=== PATIENT | male | born 1980 ===

== ENCOUNTER 2016-09-12 17:24 | Emergency (ER) | payer OTHER ==
[2016-09-12 17:31] VITALS: BP 150/82; PULSE 82; RESP 18; TEMP 98.7; O2SAT 98
--- NOTE | 2016-09-12 17:46 | ED PDOC ---
HPI: CCC, URI, Sore Throat Time Seen by Provider: 09/12/16 17:40 Chief Complaint (Nursing): ENT Problem Chief Complaint (Provider): Cough History Per: Patient History/Exam Limitations: no limitations Onset/Duration Of Symptoms: Days (4) Current Symptoms Are (Timing): Still Present Associated Symptoms: Fever (subjective), Chills, Sore Throat, Cough, Sputum, Myalgias Additional Complaint(s): Thai De La Rosa is a 36 y/o male presenting to the ER on 09/12/2016 with complaints of a productive cough associated with green sputum for four days. Patient reports cough is associated with myalgias, chills, throat pain and a subjective fever. Patient states he has not recently traveled outside the country. Past Medical History Reviewed: Historical Data, Nursing Documentation, Vital Signs Vital Signs: Last Vital Signs Temp 98.7 F 09/12/16 17:29 Pulse 82 09/12/16 17:29 Resp 18 09/12/16 17:29 BP 150/82 09/12/16 17:29 Pulse Ox 98 09/12/16 17:50 - Medical History PMH: Kidney Stones Denies: HIV, Chronic Kidney Disease - Surgical History Other surgeries: urinary stent - Family History Family History: States: Unknown Family Hx - Social History Current smoker - smoking cessation education provided: No Alcohol: None Drugs: Denies - Home Medications Home Medications: Ambulatory Orders Medication Instructions Recorded Ciprofloxacin HCl [Cipro] 500 mg PO Q12 #20 tablet 08/29/15 Tamsulosin [Flomax] 0.4 mg PO DAILY #30 cap 08/29/15 Naproxen [Naprosyn] 1 tab PO BID PRN #60 tab 09/04/15 oxyCODONE/Acetaminophen [Percocet 1 tab PO QID PRN #15 tab 09/04/15 5/325 mg Tab] Azithromycin [Zithromax] 250 mg PO DAILY #6 tab 09/12/16 Guaifenesin [Mucinex] 600 mg PO BID #14 tab.er.12h 09/12/16 - Allergies Allergies/Adverse Reactions: Allergies Allergy/AdvReac Type Severity Reaction Status Date / Time No Known Allergies Allergy Verified 03/10/14 01:03 Review of Systems ROS Statement: Except As Marked, All Systems Reviewed And Found Negative Constitutional: Positive for: Fever (subjective ), Chills, Other ((+) myalgia ) ENT: Positive for: Throat Pain Respiratory: Positive for: Cough, Sputum (green) Physical Exam - Reviewed Nursing Documentation Reviewed: Yes Vital Signs Reviewed: Yes - Physical Exam Appears: Positive for: Non-toxic, No Acute Distress Head Exam: Positive for: ATRAUMATIC, NORMOCEPHALIC Skin: Positive for: Normal Color. Negative for: Rash Eye Exam: Positive for: Normal appearance, EOMI, PERRL ENT: Positive for: Normal ENT Inspection, Pharynx Is (clear), TM Is/Are (normal ). Negative for: Sinus Pain/Drainage ((-) sinus tenderness ), Pharyngeal Erythema, Tonsillar Swelling Neck: Positive for: Normal, Painless ROM, Supple Cardiovascular/Chest: Positive for: Regular Rate, Rhythm. Negative for: Murmur Respiratory: Positive for: Normal Breath Sounds. Negative for: Wheezing, Respiratory Distress Lymphatic: Positive for: Normal Exam ((+) swelling ) Neurologic/Psych: Positive for: Alert, Oriented. Negative for: Motor/Sensory Deficits - ECG O2 Sat by Pulse Oximetry: 98 - Radiology X-Ray: Interpreted by Me X-Ray Interpretation: Other (? hypodensities noted. advised to have outpt CT scna of chest. no acute diease process noted. ) Medical Decision Making Medical Decision Makin:40 Initial Impression- 36 y/o male with productive cough; r/o PNA (due to green sputum) Initial Plan- * CXR-negative for active diease * will be d/c with zpack/mucinex f/u with pmd. Documented by Miguel Lujan, acting as a scribe for Melia Arias PA-C All medical record entries made by the Scribe were at my direction and personally dictated by me. I have reviewed the chart and agree that the record accurately reflects my personal performance of the history, physical exam, medical decision making, and the department course for this patient. I have also personally directed, reviewed, and agree with the discharge instructions and disposition. Disposition - Clinical Impression Clinical Impression: Upper respiratory infection - Patient ED Disposition Is Patient to be Admitted: No Counseled Patient/Family Regarding: Studies Performed, Diagnosis, Need For Followup, Rx Given - Disposition Referrals: [facility] [Outside] Disposition: Routine/Home Disposition Time: 18:34 Condition: STABLE Prescriptions: Azithromycin [Zithromax] 250 mg PO DAILY #6 tab Guaifenesin [Mucinex] 600 mg PO BID #14 tab.er.12h Instructions: Upper Respiratory Infection (ED)
--- NOTE | 2016-09-13 12:31 | RAD ---
HISTORY: Cough. COMPARISON: No prior. TECHNIQUE: Chest PA and lateral FINDINGS: LUNGS: No active pulmonary disease. PLEURA: No significant pleural effusion identified. No pneumothorax apparent. CARDIOVASCULAR: No radiographic findings to suggest acute or significant cardiovascular disease. OSSEOUS STRUCTURES: No significant abnormalities. VISUALIZED UPPER ABDOMEN: Normal. OTHER FINDINGS: None. IMPRESSION: No active disease.
== END 2016-09-12 18:25 | disposition home or self-care (01) ==
LOC: H.ER 17:24
DX: R50.9 Fever, unspecified (principal); J06.9 Acute upper respiratory infection, unspecified; Z87.442 Personal history of urinary calculi

== ENCOUNTER 2016-12-08 13:39 | Emergency (ER) | payer MEDICAID, OTHER ==
[2016-12-08 13:48] VITALS: BP 124/91; PULSE 85; TEMP 97.8; O2SAT 99
--- NOTE | 2016-12-08 15:01 | CT ---
PROCEDURE: CT HEAD WITHOUT CONTRAST. HISTORY: headache, vomiting COMPARISON: None available. TECHNIQUE: Axial computed tomography images were obtained through the head/brain without intravenous contrast. Radiation dose: Total exam DLP = 886.27 mGy-cm. This CT exam was performed using one or more of the following dose reduction techniques: Automated exposure control, adjustment of the mA and/or kV according to patient size, and/or use of iterative reconstruction technique. FINDINGS: HEMORRHAGE: No intracranial hemorrhage. BRAIN: No mass effect or edema. There is a small lucency at the inferior left basal ganglia which is a typical site for a dilated perivascular space which is favored over chronic lacune or infarct. Density of the ibrahim and white matter structures above below the tentorium is otherwise unremarkable including throughout the brainstem. Midline brain anatomy is unremarkable. VENTRICLES: Unremarkable. No hydrocephalus. CALVARIUM: Unremarkable. PARANASAL SINUSES: Unremarkable as visualized. No significant inflammatory changes. MASTOID AIR CELLS: Unremarkable as visualized. No inflammatory changes. OTHER FINDINGS: None. IMPRESSION: No acute intracranial findings are appreciated this time. A dilated perivascular space is favored over chronic lacune at the inferior left basal ganglia as discussed above. Follow-up CT or MRI are available should symptoms worsen or persist.
--- NOTE | 2016-12-08 16:06 | ED PDOC ---
HPI: Headache Time Seen by Provider: 12/08/16 13:54 Chief Complaint (Nursing): Headache Chief Complaint (Provider): Headache, back of head intermittent x2 weeks History Per: Patient History/Exam Limitations: no limitations Onset/Duration Of Symptoms: Days Current Symptoms Are (Timing): Still Present Severity: Moderate Pain Scale Rating Of: 5 Additional Complaint(s): Pt has not taken any medications for pain. Pt states he was worried about DM. Past Medical History Reviewed: Historical Data, Nursing Documentation, Vital Signs Vital Signs: Last Vital Signs Temp 97.8 F 12/08/16 13:45 Pulse 85 12/08/16 13:45 Resp 18 12/08/16 13:45 BP 124/91 H 12/08/16 13:45 Pulse Ox 99 12/08/16 13:45 - Medical History PMH: Kidney Stones Denies: HIV, Chronic Kidney Disease - Surgical History Surgical History: No Surg Hx - Family History Family History: States: Unknown Family Hx - Living Arrangements Living Arrangements: With Family - Social History Current smoker - smoking cessation education provided: No - Home Medications Home Medications: Ambulatory Orders Medication Instructions Recorded Ciprofloxacin HCl [Cipro] 500 mg PO Q12 #20 tablet 08/29/15 Tamsulosin [Flomax] 0.4 mg PO DAILY #30 cap 08/29/15 Naproxen [Naprosyn] 1 tab PO BID PRN #60 tab 09/04/15 oxyCODONE/Acetaminophen [Percocet 1 tab PO QID PRN #15 tab 09/04/15 5/325 mg Tab] Azithromycin [Zithromax] 250 mg PO DAILY #6 tab 09/12/16 Guaifenesin [Mucinex] 600 mg PO BID #14 tab.er.12h 09/12/16 - Allergies Allergies/Adverse Reactions: Allergies Allergy/AdvReac Type Severity Reaction Status Date / Time No Known Allergies Allergy Verified 03/10/14 01:03 Review of Systems ROS Statement: Except As Marked, All Systems Reviewed And Found Negative Constitutional: Negative for: Fever, Chills, Sweats Cardiovascular: Negative for: Chest Pain Respiratory: Negative for: Cough, Shortness of Breath Gastrointestinal: Positive for: Nausea. Negative for: Vomiting Neurological: Positive for: Headache. Negative for: Altered Mental Status, Dizziness Physical Exam - Reviewed Nursing Documentation Reviewed: Yes Vital Signs Reviewed: Yes - Physical Exam Appears: Positive for: Well, Non-toxic, No Acute Distress Head Exam: Positive for: ATRAUMATIC, NORMAL INSPECTION, NORMOCEPHALIC Skin: Positive for: Normal Color, Warm, DRY Eye Exam: Positive for: EOMI, Normal appearance, PERRL ENT: Positive for: Normal ENT Inspection Neck: Positive for: Normal, Painless ROM Cardiovascular/Chest: Positive for: Regular Rate, Rhythm Respiratory: Positive for: CNT, Normal Breath Sounds Back: Positive for: Normal Inspection Extremity: Positive for: Normal ROM Neurologic/Psych: Positive for: Alert, Oriented - ECG O2 Sat by Pulse Oximetry: 99 Disposition - Clinical Impression Clinical Impression: Headache - Patient ED Disposition Is Patient to be Admitted: No Counseled Patient/Family Regarding: Diagnosis, Need For Followup - Disposition Referrals: Arnulfo Tang MD [Medical Doctor] - Disposition: Routine/Home Disposition Time: 15:56 Condition: GOOD Instructions: Acute Headache (ED)
[2016-12-08 16:14] VITALS: RESP 16
== END 2016-12-08 15:59 | disposition home or self-care (01) ==
LOC: H.ER 13:39
DX: R51 Headache (principal); Z87.442 Personal history of urinary calculi